=== PATIENT | male | born 1955 | race Caucasian/White ===

== ENCOUNTER 2016-12-26 07:02 | Day surgery (SDC) | payer BC ==
[~2016-12-26] VITALS: Ht 210.8 cm; Wt 96.8 kg
[~2016-12-26 07:02] MED LIST: ALEVE 220MG220 MG PO; ASPIRIN 81M81 MG/TA2 PO; COZAAR 25MG25 MG/TAB PO; FLOMAX 0.40.4 MG/CAP PO; FLOMAX0.4 MG PO; LASIX 20MG TABL20 MG PO; LIPITOR 10MG10 MG PO; NITROSTAT0.4 MG/TAB SL; NORCO 325 MG-7.1 TAB PO; PRESERVISION1 SGL PO; TOPROL XL 25MG25 MG PO
[2016-12-26 07:39] VITALS: BP 125/80; PULSE 69; TEMP 97.9
[2016-12-26] MEDS ORDERED: CRESTOR 10MG10 MG PO (07:47)
[2016-12-26] MEDS ORDERED: COZAAR 25MG25 MG/TAB PO (07:48)
[2016-12-26] MEDS ORDERED: CELEBREX 1100 MG/CAP PO (07:51)
[2016-12-26 09:10] VITALS: BP 115/77; PULSE 64; TEMP 97.7
[2016-12-26 09:25] VITALS: BP 125/84; PULSE 64
[2016-12-26 12:26] VITALS: BP 97/63; PULSE 57
== END 2016-12-26 09:40 | disposition home or self-care (01) ==
LOC: SDCO 07:02
DX: Z12.11 Encounter for screening for malignant neoplasm of colon (principal); D12.5 Benign neoplasm of sigmoid colon; Z80.0 Family history of malignant neoplasm of digestive organs; K64.0 First degree hemorrhoids; I25.10 Atherosclerotic heart disease of native coronary artery without angina pectoris; I10 Essential (primary) hypertension; I50.9 Heart failure, unspecified
CPT/HCPCS: OP; J2704; J7030

== ENCOUNTER 2017-04-04 09:29 | Day surgery (SDC) | payer BC ==
[~2017-04-04] VITALS: Ht 180.3 cm; Wt 97.1 kg
[2017-04-04] VITALS (8 sets, daily range): BP systolic 90–137; BP diastolic 58–91; PULSE 63–90; TEMP 97.3–98.4
[~2017-04-04 09:29] MED LIST changes: +CELEBREX 1100 MG/CAP PO; +CRESTOR 10MG10 MG PO
[2017-04-04] MEDS ORDERED: FLONASEALLERGY NS (10:41)
[2017-04-04] MEDS ORDERED: NORCO 325 MG-7.1 TAB PO (12:28)
== END 2017-04-04 15:03 | disposition home or self-care (01) ==
LOC: SDCO 09:29
DX: K81.1 Chronic cholecystitis (principal); I25.10 Atherosclerotic heart disease of native coronary artery without angina pectoris; I25.2 Old myocardial infarction; E78.5 Hyperlipidemia, unspecified; Z95.5 Presence of coronary angioplasty implant and graft; M19.90 Unspecified osteoarthritis, unspecified site; Z87.442 Personal history of urinary calculi; N40.0 Benign prostatic hyperplasia without lower urinary tract symptoms; I25.5 Ischemic cardiomyopathy; I11.0 Hypertensive heart disease with heart failure; I50.20 Unspecified systolic (congestive) heart failure; F40.240 Claustrophobia; Z87.11 Personal history of peptic ulcer disease; Z80.0 Family history of malignant neoplasm of digestive organs; Z86.018 Personal history of other benign neoplasm
CPT/HCPCS: J0690; J1100; J1170; J2405; J2550; J2704; J2710; J3010; J7120

== ENCOUNTER 2017-10-05 05:28 | Day surgery (SDC) | payer BC ==
[2017-10-05] VITALS (11 sets, daily range): BP systolic 111–139; BP diastolic 70–87; PULSE 66–94; TEMP 97.4–98.8
[~2017-10-05] VITALS: Ht 180.3 cm; Wt 102.9 kg
[~2017-10-05 05:28] MED LIST changes: +FLONASEALLERGY NS
[2017-10-05] MEDS ORDERED: TYLENOL 500MG500 MG PO (06:46)
[2017-10-06 00:11] VITALS: BP 134/78; PULSE 69; TEMP 98.2
[2017-10-06 04:11] VITALS: BP 112/66; PULSE 60; TEMP 97.5
[2017-10-06 06:10] LABS: BASO % 0.3 % (0.0-2.0); GRAN # 6.7 (1.4-6.5); GRAN % 75.1 % (42.2-75.2); HEMATOCRIT 38.8 % (42.0-52.0); HEMOGLOBIN 13.7 g/dl (13.5-18.0); LYMPH # 1.3 (1.2-3.4); LYMPH % 14.5 % (20.0-51.0); MEAN CELL VOLUME 89 fl (80.0-100.0); MEAN CORPUSCULAR HEMOGLOBIN 32 pg (27.0-31.0); MEAN CORPUSCULAR HGB CONC 35 g/dl (33.0-37.0); MEAN PLATELET VOLUME 10.2 fl (7.4-10.4); MONO # 0.9 (0.1-0.6); MONO % 9.8 % (1.7-9.3); PLATELET COUNT 181 K/mm3 (130-400); RED BLOOD COUNT 4.34 M/mm3 (4.20-5.60); REDCELL DISTRIBUTION WIDTH-CV 12.3 % (11.5-14.5)
[2017-10-06 09:05] VITALS: BP 133/70; PULSE 64; TEMP 97.8
[2017-10-06 13:03] VITALS: BP 122/70; PULSE 71; TEMP 97.4
[2017-10-06 15:00] VITALS: BP 132/64; PULSE 70; TEMP 98
== END 2017-10-06 17:08 | disposition home or self-care (01) ==
LOC: SDCO 05:28 → JCC 12:50 → SDCO 10-06 17:08
PROVIDERS: Urology
DX: N40.1 Benign prostatic hyperplasia with lower urinary tract symptoms (principal); R33.8 Other retention of urine; N13.5 Crossing vessel and stricture of ureter without hydronephrosis; I25.10 Atherosclerotic heart disease of native coronary artery without angina pectoris; Z79.82 Long term (current) use of aspirin; Z88.8 Allergy status to other drugs, medicaments and biological substances; E78.5 Hyperlipidemia, unspecified; Z86.010 Personal history of colon polyps; I11.0 Hypertensive heart disease with heart failure; I50.9 Heart failure, unspecified
CPT/HCPCS: OP; J0690; J1100; J2270; J2405; J2704; J3010; J7030; J7120

== ENCOUNTER 2018-01-24 06:00 | Day surgery (SDC) | payer BC ==
[2018-01-24] VITALS (11 sets, daily range): BP systolic 102–123; BP diastolic 57–81; PULSE 54–68; TEMP 97.2–97.7
[~2018-01-24] VITALS: Ht 180.3 cm; Wt 100.0 kg
[~2018-01-24 06:00] MED LIST changes: +TYLENOL 500MG500 MG PO
[2018-01-24 06:28] LABS: HEMATOCRIT 43.7 % (42.0-52.0); HEMOGLOBIN 15.2 g/dl (13.5-18.0); MEAN CELL VOLUME 89 fl (80.0-100.0); MEAN CORPUSCULAR HEMOGLOBIN 31 pg (27.0-31.0); MEAN CORPUSCULAR HGB CONC 35 g/dl (33.0-37.0); MEAN PLATELET VOLUME 10.2 fl (7.4-10.4); PLATELET COUNT 188 K/mm3 (130-400); RED BLOOD COUNT 4.93 M/mm3 (4.20-5.60); REDCELL DISTRIBUTION WIDTH-CV 13.5 % (11.5-14.5)
[2018-01-24 06:33] LABS: INR 0.9 (0.8-3.0); PROTHROMBIN TIME 10.3 SECONDS (9.7-12.8)
[2018-01-24] MEDS ORDERED: TYLENOL 325MG325 MG PO (06:34)
[2018-01-24 06:39] LABS: CALCIUM 9.3 mg/dL (8.4-10.2); CREATININE, serum 0.73 mg/dL (0.66-1.25); POTASSIUM 4.1 mmol/L (3.4-5.0)
== END 2018-01-24 15:56 | disposition home or self-care (01) ==
LOC: COL.CAR 06:00
PROVIDERS: Internal Medicine Cardiovascular Disease
DX: I25.119 Atherosclerotic heart disease of native coronary artery with unspecified angina pectoris (principal); I25.5 Ischemic cardiomyopathy; Z95.5 Presence of coronary angioplasty implant and graft; Z79.82 Long term (current) use of aspirin; Z79.899 Other long term (current) drug therapy; E78.5 Hyperlipidemia, unspecified
CPT/HCPCS: J1644; J2250; J3010; Q9967

== ENCOUNTER 2020-02-18 07:09 | Day surgery (SDC) | payer MEDICARE, OTHER ==
[~2020-02-18] VITALS: Ht 180.3 cm; Wt 96.4 kg
[~2020-02-18 07:09] MED LIST changes: +TYLENOL 325MG325 MG PO
[2020-02-18 07:41] VITALS: BP 121/94; PULSE 72; TEMP 97.6
[2020-02-18] MEDS ORDERED: PRIL40 PO (07:57)
--- NOTE | 2020-02-18 07:59 | NUR ---
TO RM AT 0713- CALL LIGHT IN REACH AT BEDSIDE.
[2020-02-18 09:10] VITALS: BP 109/75; PULSE 61; TEMP 97.3
--- NOTE | 2020-02-18 09:10 | NUR ---
PATIENT TRANSPORTED PER CART TO BAY 3 ACCOMPANIED BY ENDO STAFF. PATIENT DROWSY BUT RESPONDS TO STAFF TALKING WITH HIM. PATIENT AMBULATES WITH 1 ASSIST WITH STEADY GAIT TO CHAIR. MONITORS REAPPLIED. VSS. VERBAL REPORT RECEIVED.
[2020-02-18 09:15] VITALS: BP 112/74; PULSE 64
--- NOTE | 2020-02-18 09:15 | NUR ---
VSS. PATIENT ALERT AND TALKING WITH . DENIES DISCOMFORT AND NAUSEA. GIVEN ORANGE JUICE TO DRINK.
[2020-02-18 09:30] VITALS: BP 122/78; PULSE 63
--- NOTE | 2020-02-18 09:30 | NUR ---
VSS ON ROOM AIR. DRINKING OJ WITHOUT PROBLEMS. STATES HE IS DOING FINE. GIVEN CHOCOLATE PUDDING TO EAT. AT BEDSIDE.
[2020-02-18 09:45] VITALS: BP 125/79; PULSE 60
--- NOTE | 2020-02-18 09:52 | NUR ---
VSS. PATIENT TOLERATES PUDDING AND JUICE WITHOUT PROBLEMS. DENIES DISCOMFORT AND NAUSEA. IV SITE DC'D INTACT AND PRESSURE AND BANDAGE APPLIED.
[2020-02-18 10:00] VITALS: BP 127/70; PULSE 67
--- NOTE | 2020-02-18 10:00 | NUR ---
VSS. PATIENT GIVEN DISCHARGE INSTRUCTIONS VERBALLY AND WRITTEN IN DISCHARGE PACKET. QUESTIONS ANSWERED AND PATIENT AND VOICED UNDERSTANDING. 1005 PATIENT DC'D PER WHEELCHAIR TO PRIVATE VECHILE THAT WAS DRIVING. WALKING WITH STEADY GAIT.
== END 2020-02-18 10:05 | disposition home or self-care (01) ==
LOC: SDCO 07:09
DX: Z12.11 Encounter for screening for malignant neoplasm of colon (principal); D12.8 Benign neoplasm of rectum; K63.5 Polyp of colon; K57.30 Diverticulosis of large intestine without perforation or abscess without bleeding; K64.0 First degree hemorrhoids; K29.30 Chronic superficial gastritis without bleeding; K29.80 Duodenitis without bleeding; G47.33 Obstructive sleep apnea (adult) (pediatric); I25.2 Old myocardial infarction; I25.10 Atherosclerotic heart disease of native coronary artery without angina pectoris; I10 Essential (primary) hypertension; E78.5 Hyperlipidemia, unspecified; F40.240 Claustrophobia; Z87.891 Personal history of nicotine dependence; Z79.82 Long term (current) use of aspirin; Z82.49 Family history of ischemic heart disease and other diseases of the circulatory system; Z80.0 Family history of malignant neoplasm of digestive organs; Z95.5 Presence of coronary angioplasty implant and graft; Z79.899 Other long term (current) drug therapy; Z90.49 Acquired absence of other specified parts of digestive tract; Z90.79 Acquired absence of other genital organ(s); Z96.659 Presence of unspecified artificial knee joint; Z88.8 Allergy status to other drugs, medicaments and biological substances
CPT/HCPCS: J2250; J2704; J7030